=== PATIENT | female | born 1985 ===

== ENCOUNTER 2023-12-27 14:04 | Outpatient (AMB) | payer BC, SELFPAY ==
[2023-12-27 14:07] VITALS: BP 112/68; PULSE 86; O2SAT 97; BMI 24.9
--- NOTE | 2023-12-27 14:07 | MHC.PC.OV ---
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 Intake Note: Pt is here to est care Pt needs a referral to MEDICAL ADMINISTRATIVE SPECIALIST it has been over 5 years Is last menstrual period known: No (maybe 2 months ago ) Allergies No Known Allergies Allergy (Verified 12/27/23 14:18) Medication List - Last Reconciled 12/27/23 by JOLANTA Ortega No Known Home Meds Tobacco use date assessed: 12/27/23 Dental Screening Dental Screen Date: 12/27/23 Did you have a dental visit in the last 12 months?: No Did you have a dental problem in the last 6 months where you did not have access to dental care?: No Was dental information given to patient?: No HPI HPI Comments History of Present Illness Details Patient is a 38-year-old female who I am meeting for the 1st time. She is here for physical exam. She has not seen a primary care provider in over 5 years. She is due for pap smear will refer to OBGYN. Patient will send records from previous provider she is unsure about immunizations, unable to verify. Patient has a primary concern lower back pain times 6 months. 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 Denies any trauma to the area. States that she does have burning. She is unable to sit for long periods of time. Has not tried any medication for relief. PFSH Family History (Updated 12/27/23 @ 14:54 by JOLANTA Ortega) Maternal Grandfather Mental health disorder Mother Mental health disorder Maternal Grandmother Breast cancer Social History (Updated 12/27/23 @ 14:54 by JOLANTA Ortega) Housing: House Patient Tobacco Use Status: Never used Tobacco e-Cigarette/Vaping Use: Never Used Second Hand Smoke Exposure: No service: No Current occupational status: employed Current occupation: [employer] Current occupational exposures/hazards: No Cognitive needs: No Hearing needs: No Vision needs: Yes Questionnaire PHQ-9 Over the last 2 weeks, how often have you been bothered by any of the following problems? 55615 - PHQ-9 Billing: Patient declined-do not bill Source: Developed by Drs. George Wallis, Zuleyka Echavarria, Washington Charles and colleagues, with an educational kristi from [employer]. Thrive Questionnaire Date Thrive assessed: 12/27/23 I am a: Patient What is your living situation today?: I have a steady place to live Within the past 12 months, did the food you bought not last and you didn't have the money to get more?: Never true Within the past 12 months, did you worry whether your food would run out before you got money to buy more?: Never true Do you have trouble paying for medicines?: No Do you have trouble getting transportation to medical appointments?: No Do you have trouble paying your heating and electricity bill?: No Do you have trouble taking care of your child, family member or friend?: No Do you have trouble with day-to-day activities such as bathing, preparing meals, shopping, managing finances, etc.?: No Are you currently unemployed and looking for a job?: No Are you interested in more education?: Yes THRIVE Score: 0 AUDIT C Alcohol Use Questionnaire (AUDIT-C) 1. How often do you have a drink containing alcohol?: Monthly or less 2. How many drinks containing alcohol do you have on a typical day when you are drinking?: 1 or 2 3. How often do you have six or more drinks on one occasion?: Never Total Score: 1 JACOB-7 AMB Questionnaire JACOB-7 Date JACOB - 7 assessed: 12/27/23 Feeling nervous, anxious, or on edge: 2 = More than half the days Not being able to stop or control worryin = More than half the days Worrying too much about different things: 1 = Several days Trouble relaxin = More than half the days Being so restless that it is hard to sit still: 2 = More than half the days Becoming easily annoyed or irritable: 1 = Several days Feeling afraid as if something awful might happen: 2 = More than half the days Total JACOB-7 score (0-4 normal; 5-9 mild; 10-14 moderate; 15-21 severe): 12 Source: Developed by Zuleyka Wilson Kurt Kroenke and colleagues, with an educational kristi from [employer]. JACOB-7 Assessment Billing JACOB-7 Assessment Tool: JACOB-7 Assessment 67622 (Patient does not want therapy or medication at this time.) Review of Systems Const All systems reviewed & are unremarkable except as noted in HPI and below Musc Reports back pain (lower back pain) and Reports radiating pain into limb (Bilateral lower extremities.) Psych Reports anxiety (Denies SI/HI. ) Physical exam (Primary Care) Care Plan Goal for BP management: Vital signs reviewed stable. Const Other: Appearance: Alert.? Oriented X3.? No acute distress.? Head: Normocephalic, atraumatic, Eyes: Pupils equal, round and reactive to light.?No photophobia. ENT: Pharynx normal.?Septum midline, TM intact and pearly rasheed. Neck: Normal inspection.? Neck supple.?Full ROM. CVS: Normal heart rate and rhythm.? Pulses normal.? Respiratory: No respiratory distress.? Breath sounds normal.? Abdomen: Soft and nontender.? Skin: Skin warm and dry.? Normal skin color.? Normal skin turgor.? Extremities: No lower extremity edema.?5/5 strength to bilateral upper and lower extremities Back: No midline tenderness, no C-spine tenderness, Limited range of motion to flexion/extension. + straight leg test bilaterally. no CVA tenderness bilaterally Neuro: Oriented X 3.? No motor deficit.? No sensory deficit. CN 2-12 intact Assessment and Plan Assessment & Plan (1) Encounter for routine adult physical exam with abnormal findings: Comment: Will order fasting labs. Will refer patient OBGYN. Code(s): Z00.01 - Encounter for general adult medical examination with abnormal findings (2) Low back pain radiating to lower extremity: Comment: Will give patient meloxicam, cyclobenzaprine, prednisone, to be taken as directed. Will order lumbar x-ray. Will refer to PT if indicated Code(s): M54.50 - Low back pain, unspecified; M79.606 - Pain in leg, unspecified Plan: Take your medications as prescribed. If you were prescribed antibiotics today, it is important that you take your medication to their entirety, do not skip any doses, do not finish them early. Follow-up with your primary care provider this week. Return to the emergency department with new or worsening symptoms. Such as fevers, chills, chest pain, shortness of breath, nausea, vomiting, dizziness, headache, vision changes, lethargy In case of emergency call 911 Plan Follow-up in 3 months. Orders: Orders Comprehensive Met. Panel Today Z91.89 - Other specified personal risk factors, not elsewhere classified Vitamin D 25-OH (D2 and D3) Today Z13.21 - Encounter for screening for nutritional disorder Vitamin B12 Today Z13.21 - Encounter for screening for nutritional disorder UA CC w/rflx Micro + Cult Today Z13.89 - Encounter for screening for other disorder TSH reflex Free T4 Today Z13.29 - Encounter for screening for other suspected endocrine disorder Lipid Panel Today Z13.220 - Encounter for screening for lipoid disorders T Spot TB Today Z11.1 - Encounter for screening for respiratory tuberculosis Complete Blood Count Auto Diff Today Z13.0 - Encounter for screening for diseases of the blood and blood-forming organs and certain disorders involving the immune mechanism Vitamin B6 Today Z13.21 - Encounter for screening for nutritional disorder XR lumbar spine 2-3V Today M54.50 - Low back pain, unspecified, M79.606 - Pain in leg, unspecified Referrals MEDICAL ADMINISTRATIVE SPECIALIST Referral Z12.4 - Encounter for screening for malignant neoplasm of cervix Medications: New meloxicam Do not combine with other NSAIDS 15 mg PO DAILY 20 tabs 0RF cyclobenzaprine Take before bedtime as needed. 5 mg PO BEDTIME PRN 14 tabs 0RF muscle spasm prednisone 20 mg PO BID 10 tabs 0RF Coding Level of Care Code New Pt Prev Care 18-39yr([id number] Diagnoses Encounter for routine adult physical exam with abnormal findings Z00.01 Low back pain radiating to lower extremity M54.50; M79.606 Additional Codes JACOB-7 Assessment Billing - JACOB-7 Assessment Tool: JACOB-7 Assessment 68389 ([id number]) Time Spent (min) 35
== END 2023-12-27 16:08 | disposition home or self-care (01) ==
PROVIDERS: Visit Provider Nurse Practitioner Primary Care
DX: Z00.01 Encounter for general adult medical examination with abnormal findings (principal); M54.50 Low back pain, unspecified; M79.606 Pain in leg, unspecified
CPT/HCPCS: 99213; 99385

== ENCOUNTER 2024-01-01 06:03 | Outpatient (REF) | payer BC, SELFPAY ==
--- NOTE | ~2024-01-01 | XR_ITS ---
EXAMINATION: XR LUMBOSACRAL SPINE CLINICAL INFORMATION: Low back pain unspecified. COMPARISON: None available. TECHNIQUE: Three views of the lumbosacral spine. FINDINGS: Slight leftward curvature of the lumbar spine. Mild degenerative changes in the bilateral sacroiliac joints. Facet arthritis in the lower lumbar spine. Mild spondylosis with loss of disc space height at L5-S1. XR/XR lumbar spine 2-3V IMPRESSION: 1. Mild degenerative changes in the bilateral sacroiliac joints. 2. Facet arthritis in the lower lumbar spine. 3. Mild spondylosis with loss of disc space height at L5-S1.
[2024-01-01 11:28] LABS: Appearance Urine Turbid; Color Urine Dark Yellow; Glucose Urine UA Negative (Negative); Leukocyte Esterase Urine Small (1+) (Negative); Nitrite Urine Negative (Negative); PH 5.5 (5.0-9.0); Specific Gravity - Urine >= 1.030 (1.005-1.025); UMIC TRIGGER UACC YES; Urine Blood Large (3+) (Negative); Urine Ketones Trace mg/dL (Negative); Urine Protein 30 (1+) mg/dL (Neg-Trace)
[2024-01-01 11:34] LABS: Bacteria Urine 1+ (None Seen); Hyaline Casts Urine 0-2 /LPF (0-2); RBC Urine >20 /HPF (0-2); UACC Culture Trigger YES; WBC Urine 21-50 /HPF (0-5)
[2024-01-01 11:35] LABS: MANUAL DIFF FLAG NO
[2024-01-01 11:48] LABS: Basophils Absolute Auto 0.1 X10*3/uL (0.0-0.2); Eosinophils Percent Auto 0.6 % (0-4); Hematocrit 38.7 % (37.0-47.0); Hemoglobin 12.7 g/dl (12.0-16.0); Imm Gran Abs Auto 0.01 X10*3/uL (0.00-0.03); Imm Gran Pct Auto 0.2 % (0.0-0.4); Lymphocytes Absolute Auto 2.4 X10*3/uL (1.2-4.9); Lymphocytes Percent Auto 48.5 % (20-40); Mean Corpuscular HGB Conc 32.8 g/dl (31.0-35.0); Mean Corpuscular Hemoglobin 30.1 pg (27.0-33.0); Mean Corpuscular Volume 91.7 fL (80.0-98.0); Mean Platelet Volume 11.3 fL (9.4-12.3); Monocytes Absolute Auto 0.3 X10*3/uL (0.1-1.2); Monocytes Percent Auto 6.8 % (2-11); Neutrophils Absolute Auto 2.1 x10*3/uL (2.0-8.3); Neutrophils Percent Auto 42.9 % (45-73); Platelet Count 283 X10*3/uL (160-400); Red Blood Count 4.22 X10*6/uL (4.20-5.50)
[2024-01-01 12:26] LABS: Vitamin B12 258 pg/mL (200-900)
[2024-01-01 12:31] LABS: Alanine Aminotransferase 11 U/L (0-31); Alkaline Phosphatase 47 U/L (39-117); Anion Gap 11 (12-20); Aspartate Amino Transferase 14 U/L (5-31); Bilirubin Total 1.6 mg/dL (0.0-1.0); Blood Urea Nitrogen 12 mg/dL (9-16); Calcium 8.9 mg/dL (8.4-10.2); Carbon Dioxide 25 mmol/L (22-29); Chloride 107 mmol/L (96-108); Cholesterol 174 mg/dL (<200); Estimated Glomerular Filt Rate > 60; Glucose Random 79 mg/dL (60-115); HDL Cholesterol 58 mg/dL (>40); LDL Cholesterol Calculated 98 mg/dL (<100); Potassium 3.4 mmol/L (3.3-5.1); Sodium 140 mmol/L (135-145); Total Protein 6.9 g/dL (6.5-8.0); Triglycerides 91 mg/dL (<150)
[2024-01-01 12:39] LABS: TSH reflex Free T4 5.85 uIU/mL (0.32-4.0)
[2024-01-01 13:11] LABS: Free T4 (Free Thyroxine) 0.95 ng/dL (0.71-1.85)
[2024-01-03 22:33] LABS: TS Negative Control Passed; TS Panel A 0; TS Panel B 0; TS Positive Control Passed; TSpotTB Negative (Negative)
[2024-01-05 16:28] LABS: Vitamin B6 6.5 ng/mL (2.1-21.7)
[2024-01-07 13:27] LABS: Vitamin D 25-OH, D2 <4 ng/mL; Vitamin D 25-OH, D3 18 ng/mL; Vitamin D 25-OH, Total 18 ng/mL (30-100)
== END 2024-01-01 06:04 | disposition home or self-care (01) ==
LOC: HO.HMGCLDS 06:03
PROVIDERS: PCP Nurse Practitioner Primary Care; Visit Provider Nurse Practitioner Primary Care
DX: Z13.6 Encounter for screening for cardiovascular disorders (principal); Z13.21 Encounter for screening for nutritional disorder; Z13.29 Encounter for screening for other suspected endocrine disorder; Z13.220 Encounter for screening for lipoid disorders; Z13.0 Encounter for screening for diseases of the blood and blood-forming organs and certain disorders involving the immune mechanism; Z11.1 Encounter for screening for respiratory tuberculosis; M54.50 Low back pain, unspecified; Z91.89 Other specified personal risk factors, not elsewhere classified; M79.606 Pain in leg, unspecified; R82.90 Unspecified abnormal findings in urine
CPT/HCPCS: 36415; 72100; 80053; 80061; 81001; 82306; 82607; 84207; 84439; 84443; 85025; 86481; 87086

== ENCOUNTER 2024-01-01 14:48 | Outpatient (REF) | payer BC, SELFPAY | END 2024-01-01 14:49 | disposition home or self-care (01) | LOC: HO.HMGCX 14:48 | PROVIDERS: PCP Nurse Practitioner Primary Care; Visit Provider Nurse Practitioner Primary Care | DX: Z13.89 Encounter for screening for other disorder (principal) ==

== ENCOUNTER 2024-03-20 14:32 | Outpatient (AMB) | payer BC, SELFPAY ==
[2024-03-20 14:33] VITALS: BP 114/78; PULSE 81; O2SAT 98; BMI 24.6
--- NOTE | 2024-03-20 14:33 | MHC.PC.OV ---
Vital Signs 03/20/24 14:33 Height 5 ft 5 in Weight 148 lb BMI 24.6 BP 114/78 Blood Pressure Location Rt brachial Position Sitting Pulse 81 Pulse Source Pulse Oximeter Pulse Oximetry (%) 98 Oxygen Delivery Method Room Air Intake Visit Reasons: 3M F/U Back pain Intake Note: pt here today for 3 mo f/u back pain. Still having pain constantly Allergies No Known Allergies Allergy (Verified 03/20/24 14:51) Medication List - Last Reconciled 03/20/24 by JOLANTA Ortega cyclobenzaprine 5 mg PO BEDTIME PRN meloxicam 15 mg PO DAILY Tobacco use date assessed: 03/20/24 Dental Screening Dental Screen Date: 03/20/24 Did you have a dental visit in the last 12 months?: No Did you have a dental problem in the last 6 months where you did not have access to dental care?: No Was dental information given to patient?: No HPI HPI Comments History of Present Illness Details Patient is a 38-year-old female in today for follow-up with lower back pain. Patient has lumbar x-ray on file which demonstrated loss of disc space at L5-S1, as well as facet arthritis and degenerative changes of bilateral SI joints. Patient has been utilizing meloxicam and cyclobenzaprine p.r.n. with good effect. Patient has also been going through course of physical therapy and has 1 more week left with mild to moderate effect. Patient denies numbness or tingling. Patient denies and radiculopathy. Patient has full range of motion but does experience intermittent pain. Denies saddle numbness. 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 Patient is pursuing more sedentary position for work. Will order referral to pain clinic. Will also order MRI of spine. Patient has establish care with OBGYN at [facility]. Has agreed to send us the notes. [facility] Surgical History No pertinent past surgical history Family History Maternal Grandfather Mental health disorder Mother Mental health disorder Maternal Grandmother Breast cancer Social History Housing: House Patient Tobacco Use Status: Never used Tobacco e-Cigarette/Vaping Use: Never Used Second Hand Smoke Exposure: No service: No Current occupational status: employed Current occupation: [employer] Current occupational exposures/hazards: No Cognitive needs: No Hearing needs: No Vision needs: Yes Questionnaire PHQ-9 Over the last 2 weeks, how often have you been bothered by any of the following problems? 09397 - PHQ-9 Billing: Patient declined-do not bill Source: Developed by Drs. George Wallis, Washington Alcantara and colleagues, with an educational kristi from [employer]. Thrive Questionnaire Date Thrive assessed: 12/27/23 AUDIT C Alcohol Use Questionnaire (AUDIT-C) 1. How often do you have a drink containing alcohol?: Monthly or less 2. How many drinks containing alcohol do you have on a typical day when you are drinking?: 1 or 2 3. How often do you have six or more drinks on one occasion?: Never Total Score: 1 JACOB-7 AMB Questionnaire JACOB-7 Date JACOB - 7 assessed: 12/27/23 Source: Developed by Drs. George Wallis, Washington Alcantara and colleagues, with an educational kristi from [employer]. Review of Systems Const All systems reviewed & are unremarkable except as noted in HPI and below Physical exam (Primary Care) Vital Signs: Last Vital Signs Pulse 81 03/20/24 14:33 BP 114/78 03/20/24 14:33 Pulse Ox 98 03/20/24 14:33 Oxygen Delivery Method Room Air 03/20/24 14:33 Care Plan Goal for BP management: Patient's blood pressure is controlled. BMI result Body Mass Index 24.6 Tobacco/Smoking Status: Tobacco use Status Tobacco use date assessed 03/20/24 03/20/24 14:41 Patient Tobacco Use Status Never used Tobacco 03/20/24 14:41 e-Cigarette/Vaping Use Never Used 03/20/24 14:41 Thrive Assessment: Date of Thrive Assessment Date Thrive assessed 12/27/23 03/20/24 14:41 Const Other: Appearance: Alert.? Oriented X3.? No acute distress.? Head: Normocephalic. CVS: Normal heart rate and rhythm.? Pulses normal.? Respiratory: No respiratory distress.? Skin: Skin warm and dry.? Normal skin color.? Normal skin turgor.? Back: No midline tenderness, no C-spine tenderness, full range of motion, no CVA tenderness bilaterally. Bilateral SI tenderness. +pain with straight leg test bilaterally. Neuro: Oriented X 3.? No motor deficit.? No sensory deficit. Results Reviewed Results Reviewed: Sodium 140 135-145 mmol/L Potassium 3.4 3.3-5.1 mmol/L CL 107 96-108 mmol/L CO2 25 22-29 mmol/L Gap 11 L 12-20 BUN 12 9-16 mg/dL Creat 0.70 0.5-1.4 mg/dL EGFR > 60 NOTE: For -[place]ian individuals, multiply the result by 1.210. Chronic Kidney Disease: Estimated GFR < 60 mL/min/1.73m2 Severe Kidney Disease: Estimated GFR < 15 mL/min/1.73m2 Glucose, Random 79 60-115 mg/dL CA 8.9 8.4-10.2 mg/dL Total Bili 1.6 H 0.0-1.0 mg/dL AST (GOT) 14 5-31 U/L ALT (GPT) 11 0-31 U/L Protein, Total 6.9 6.5-8.0 g/dL Alb 4.0 3.5-5.0 g/dL Triglyceride 91 <150 mg/dL Desirable Triglyceride: less than 150 mg/dL Borderline High Triglyceride 150-199 mg/dL High Triglyceride: 200-499 mg/dL Very High Triglyceride: greater than or equal to 5OO mg/dL Cholesterol 174 <200 mg/dL Desirable Cholesterol: less than 200 mg/dL Borderline High Cholesterol: 200-239 mg/dL High Cholesterol: greater than 239 mg/dL LDL Calculated 98 <100 mg/dL Desirable LDL: less than 100 mg/dL Near Optimal/Above Optimal LDL: 110-129 mg/dL Borderline High LDL: 130-159 mg/dL High LDL: 160-189 mg/dL Very High LDL: greater than or equal to 190 mg/dL HDL 58 >40 mg/dL Desirable HDL: greater than 40 mg/dL Note: This HDL assay may give artificially low results in patients with liver disease. Alk Phos 47 39-117 U/L Free T4 0.95 0.71-1.85 ng/dL TSH 5.85 H 0.32-4.0 uIU/mL Assessment and Plan Assessment & Plan (1) Vitamin D deficiency: Comment: Will redraw vitamin-D. Patient states she is taking multivitamin with vitamin-D. Unknown amount. Patient has been instructed to look to see specific amount of vitamin D3 in the multivitamin. Code(s): E55.9 - Vitamin D deficiency, unspecified (2) Low back pain radiating to lower extremity: Comment: Patient currently undergoing physical therapy with [id number] effect. Does still have intermittent SI and lumbar pain. Does have radiculopathy on straight leg exam. Patient utilizes meloxicam and cyclobenzaprine with [id number] effect Code(s): M54.50 - Low back pain, unspecified; M79.606 - Pain in leg, unspecified Plan: Will order MRI and give referral to Pain managment. Plan Will draw labs. Including vitamin-D, CBC, CMP, UA Orders: Orders UA CC w/rflx Micro + Cult Today Z13.89 - Encounter for screening for other disorder Complete Blood Count Auto Diff Today Z13.0 - Encounter for screening for diseases of the blood and blood-forming organs and certain disorders involving the immune mechanism Comprehensive Met. Panel Today Z91.89 - Other specified personal risk factors, not elsewhere classified XR sacroiliac joint 1-2V Today R10.9 - Unspecified abdominal pain Vitamin D 25-OH (D2 and D3) Today E55.9 - Vitamin D deficiency, unspecified MR lumbar spine wo con Today M54.50 - Low back pain, unspecified, M79.606 - Pain in leg, unspecified Referrals Pain Management Referral M54.50 - Low back pain, unspecified, M79.606 - Pain in leg, unspecified Coding Level of Care Code Est Pt Level 3 (35758) Diagnoses Vitamin D deficiency E55.9 Low back pain radiating to lower extremity M54.50; M79.606 Time Spent (min) 26
== END 2024-03-20 14:59 | disposition home or self-care (01) ==
PROVIDERS: PCP Nurse Practitioner Primary Care; Visit Provider Nurse Practitioner Primary Care
DX: E55.9 Vitamin D deficiency, unspecified (principal); M54.50 Low back pain, unspecified; M79.606 Pain in leg, unspecified
CPT/HCPCS: 99213

== ENCOUNTER 2024-03-20 15:02 | Outpatient (REF) | payer BC, SELFPAY ==
--- NOTE | ~2024-03-20 | XR_ITS ---
EXAMINATION: XR SACROILIAC JOINTS CLINICAL INFORMATION: Low back pain. COMPARISON: Lumbar spine 01/01/2024. TECHNIQUE: 3 views of the sacroiliac joints FINDINGS: Degenerative changes in the imaged lower lumbar spine. Mild degenerative changes with sclerosis along the bilateral sacroiliac joints. XR/XR sacroiliac joint 1-2V IMPRESSION: Mild degenerative changes with sclerosis along the bilateral sacroiliac joints.
[2024-03-20 15:59] LABS: MANUAL DIFF FLAG NO
[2024-03-20 16:01] LABS: Appearance Urine Clear; Color Urine Yellow; Glucose Urine UA Negative (Negative); Leukocyte Esterase Urine Negative (Negative); Nitrite Urine Negative (Negative); PH 5.5 (5.0-9.0); Urine Blood Negative (Negative); Urine Ketones Negative (Negative); Urine Protein Negative (Neg-Trace)
[2024-03-20 16:12] LABS: Basophils Absolute Auto 0.1 X10*3/uL (0.0-0.2); Basophils Percent Auto 0.9 % (0-2); Eosinophils Absolute Auto 0.1 X10*3/uL (0.0-0.4); Eosinophils Percent Auto 2.1 % (0-4); Hematocrit 38.4 % (37.0-47.0); Hemoglobin 12.9 g/dl (12.0-16.0); Imm Gran Abs Auto 0.02 X10*3/uL (0.00-0.03); Imm Gran Pct Auto 0.3 % (0.0-0.4); Lymphocytes Absolute Auto 1.5 X10*3/uL (1.2-4.9); Lymphocytes Percent Auto 26.2 % (20-40); Mean Corpuscular HGB Conc 33.6 g/dl (31.0-35.0); Mean Corpuscular Hemoglobin 30.4 pg (27.0-33.0); Mean Corpuscular Volume 90.6 fL (80.0-98.0); Mean Platelet Volume 11.3 fL (9.4-12.3); Monocytes Absolute Auto 0.3 X10*3/uL (0.1-1.2); Monocytes Percent Auto 4.8 % (2-11); Neutrophils Absolute Auto 3.8 x10*3/uL (2.0-8.3); Neutrophils Percent Auto 65.7 % (45-73); Platelet Count 256 X10*3/uL (160-400); Red Blood Count 4.24 X10*6/uL (4.20-5.50); Red Cell Distribution Width 12.6 % (11.0-16.0); White Blood Count 5.8 X10*3/uL (4.8-10.8)
[2024-03-20 16:37] LABS: Alanine Aminotransferase 9 U/L (0-31); Albumin Level 4.2 g/dL (3.5-5.0); Alkaline Phosphatase 42 U/L (39-117); Anion Gap 10 (12-20); Aspartate Amino Transferase 17 U/L (5-31); Bilirubin Total 1.1 mg/dL (0.0-1.0); Blood Urea Nitrogen 9 mg/dL (9-16); Calcium 9.5 mg/dL (8.4-10.2); Carbon Dioxide 27 mmol/L (22-29); Chloride 107 mmol/L (96-108); Estimated Glomerular Filt Rate > 60; Glucose Random 146 mg/dL (60-115); Potassium 3.6 mmol/L (3.3-5.1); Sodium 140 mmol/L (135-145); Total Protein 7.3 g/dL (6.5-8.0)
[2024-03-25 13:42] LABS: Vitamin D 25-OH, D2 <4 ng/mL; Vitamin D 25-OH, D3 19 ng/mL; Vitamin D 25-OH, Total 19 ng/mL (30-100)
== END 2024-03-20 15:03 | disposition home or self-care (01) ==
LOC: HO.HMGCX 15:02
PROVIDERS: PCP Nurse Practitioner Primary Care; Visit Provider Nurse Practitioner Primary Care
DX: Z13.89 Encounter for screening for other disorder (principal); Z91.89 Other specified personal risk factors, not elsewhere classified; E55.9 Vitamin D deficiency, unspecified; Z13.0 Encounter for screening for diseases of the blood and blood-forming organs and certain disorders involving the immune mechanism; R10.9 Unspecified abdominal pain
CPT/HCPCS: 36415; 72200; 80053; 81003; 82306; 85025

== ENCOUNTER 2024-03-27 13:06 | Outpatient (AMB) | payer BC, SELFPAY ==
--- NOTE | 2024-03-27 13:12 | MHC.OFFVIS ---
Vital Signs 03/27/24 13:17 Height 5 ft 5 in Weight 148 lb 6 oz BMI 24.7 BP 126/70 Blood Pressure Location Rt brachial Position Sitting Pulse 74 Pulse Source Pulse Oximeter Pulse Oximetry (%) 99 Oxygen Delivery Method Room Air Intake Visit Reasons: Low back pain, unspecified Intake Note: Pain today 07/23 Head Of Cytogenetics Required: No Accompanied by: Self / Same As Patient Allergies No Known Allergies Allergy (Verified 03/20/24 14:51) HPI HPI Low back pain, unspecified: Details: Patient is a pleasant 38 years old female with history of lumbar degenerative disc disease at L5-S1, lumbar spondylosis and sacroiliac joint degeneration presents today for initial evaluation of low back pain. Denies any recent trauma, injury or falls. 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 Back pain is axial and also radiates into both buttocks, sacral areas and lateral hips but not below the knee level. She reports intermittent numbness and tingling into her left lateral lower extremity. 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 Pain is rated at 8-10/10. Patient has tried meloxicam and cyclobenzaprine with partial relief. She is currently undergoing physical therapy at [facility] [place] [place] [facility] with mild improvement. Pain affects her daily activities, functioning, housechores and work, sleep and social interactions. Denies any fever, chills, abdominal or groin pain, weakness, foot drop, bladder or bowel dysfunction or saddle anesthesia. Oswestry Low Back Pain Score=18 (moderate disability) Location: Lower back radiates down to bilateral leg, left leg is worse Duration: Chronic pain for over 3 years Characteristics of symptom or complaint: Stabbing, shooting, numbness, aching, spasming, throbbing, tingling Aggravating or associated factors: Sitting, walking, cold weather, bending, heavy lifting, pulling, twisting Relieving factors: Standing, rest, cyclobenzaprine, NSAIDs Treatment: Back injections- Estefania Guevara , PT PFSH Surgical History No pertinent past surgical history Family History Maternal Grandfather Mental health disorder Mother Mental health disorder Maternal Grandmother Breast cancer Social History Housing: House Patient Tobacco Use Status: Never used Tobacco e-Cigarette/Vaping Use: Never Used Second Hand Smoke Exposure: No service: No Current occupational status: employed Current occupation: [employer] Current occupational exposures/hazards: No Cognitive needs: No Hearing needs: No Vision needs: Yes Review of Systems Const All systems reviewed & are unremarkable except as noted in HPI and below Physical Exam Vital Signs: Last Vital Signs Pulse 74 03/27/24 13:17 BP 126/70 03/27/24 13:17 Pulse Ox 99 03/27/24 13:17 Oxygen Delivery Method Room Air 03/27/24 13:17 BMI result Body Mass Index 24.7 General: Appears afebrile. Alert and oriented. Mood and affect appropriate. Follows and participates in conversation appropriately. Respiratory effort is unlabored. No cough. Able to transition from sit to stand unassisted. Ambulates with bilaterally normal heel strike and toe off. General: Yes no CVA tenderness Back/Spine/Pelvis Other: Patient is able to walk and stand on heels and tip toes with no difficulties demonstrating good motor tone. No limping. Can flex forward to 75-80 degrees and extend to 5-10 degrees before experiencing lumbar pain. Demonstrates 5/5 strength of quadriceps bilaterally as well as flexion/dorsiflexion of bilateral feet against resistance. 2+ pedal pulses bilaterally. Seated straight leg rise with dorsiflexion negative bilaterally. +2 patellar and achilles reflexes bilaterally. Facet loading test positive bilaterally. John sign, Adam?s, Gaenslen, Pelvic compression and Stinchfield tests are positive bilaterally, left worse than right. No groin pain with I/E hip rotations. Valsalva maneuver negative. Back: no CVA tenderness Cervical Spine: cervical ROM normal, cervical muscular tenderness, pain with cervical ROM and No Cervical spine tenderness Thoracic/Lumbar Spine: thoracic and lumbar spine normal to inspection, No Thoracic/lumbar spine scar(s), Lasegue's sign negative, straight leg raise negative bilaterally, pain with thoraco-lumbar ROM, paraspinal muscle tenderness on the left greater than right, No thoracic spinal tenderness and lumbar spinal tenderness (L4-S1) Pelvis: buttock tenderness bilaterally Sacroiliac joints: bilaterally (left>right) tender to palpation Extrem General: Yes capillary refill normal, Yes no clubbing, cyanosis or edema and Yes no calf tenderness Results Reviewed Results Reviewed: XR LUMBOSACRAL SPINE 01/01/24 CLINICAL INFORMATION: Low back pain unspecified. FINDINGS: Slight leftward curvature of the lumbar spine. Mild degenerative changes in the bilateral sacroiliac joints. Facet arthritis in the lower lumbar spine. Mild spondylosis with loss of disc space height at L5-S1. IMPRESSION: 1. Mild degenerative changes in the bilateral sacroiliac joints. 2. Facet arthritis in the lower lumbar spine. 3. Mild spondylosis with loss of disc space height at L5-S1. Assessment & Plan Assessment & Plan (1) Muscle spasm of back: Code(s): M62.830 - Muscle spasm of back Category: Medical (2) Sacroiliac joint pain: Code(s): M53.3 - Sacrococcygeal disorders, not elsewhere classified Category: Medical (3) Lumbosacral spondylosis: Code(s): M47.817 - Spondylosis without myelopathy or radiculopathy, lumbosacral region Category: Medical (4) Lumbar degenerative disc disease: Code(s): M51.36 - Other intervertebral disc degeneration, lumbar region Category: Medical Plan Patient's pain consistent with axial low back and bilateral SI joint pain, worse on the left. Lumbar spine xray and treatment options discussed with patient. There is a pending lumbar spine MRI ordered by PCP. In meantime, patient is interested to undergo Left therapeutic Sacroiliac Joint Injection with local and fluoroscopy. If no relief, will proceed with diagnostic bilateral lumbar medial branch blocks for axial low back pain. Expectations, risks and benefits were reviewed. Patient is aware she will be contacted to schedule this procedure. Scripts provided for methocarbamol and lidocaine patches. Patient reports increased dizziness and drowsiness with cyclobenzaprine. Side effects and precautions discussed with patient. All questions were answered and the patient is in agreement of plan. Follow-up after injections/MRI review and sooner as needed. Medications: New methocarbamol 750 mg PO BID 30 days PRN 60 tabs 0RF muscle spasm M53.3 - Sacrococcygeal disorders, not elsewhere classified, M54.50 - Low back pain, unspecified, M62.830 - Muscle spasm of back, M79.606 - Pain in leg, unspecified lidocaine 5% 1 patch topical DAILY 30 days 30 ea 0RF Discontinued cyclobenzaprine Take before bedtime as needed. Discontinued Reason: Patient Completed Course 5 mg PO BEDTIME PRN 14 tabs 0RF muscle spasm Coding Level of Care Code New Pt Level 4 (71546) Diagnoses Muscle spasm of back M62.830 Sacroiliac joint pain M53.3 Lumbosacral spondylosis M47.817 Lumbar degenerative disc disease M51.36
[2024-03-27 13:17] VITALS: BP 126/70; PULSE 74; O2SAT 99; BMI 24.7
== END 2024-03-27 14:11 | disposition home or self-care (01) ==
PROVIDERS: PCP Nurse Practitioner Primary Care; Visit Provider Nurse Practitioner Family
DX: M62.830 Muscle spasm of back (principal); M53.3 Sacrococcygeal disorders, not elsewhere classified; M47.817 Spondylosis without myelopathy or radiculopathy, lumbosacral region; M51.36 Other intervertebral disc degeneration, lumbar region
CPT/HCPCS: 99204

== ENCOUNTER → 2024-03-27 13:06 | Outpatient (BNVA) | payer BC, SELFPAY | PROVIDERS: PCP Nurse Practitioner Primary Care; Visit Provider Nurse Practitioner Family ==

== ENCOUNTER 2024-04-24 08:00 | Outpatient (RCR) | payer BC, SELFPAY ==
--- NOTE | 2024-02-21 14:44 | MHC.PT.EP ---
[facility] [place] Office [place] Office [place] Office [address] [phone] F: [phone] F: [phone] F: [phone] F: [phone] Physical Therapy Plan of Care Date of Evaluation: 02/21/24 Date of Surgery: Diagnosis: LBP and pain in leg. Assessment: Patient is a 38 year old R handed female who presents with s/s consistent with low back pain and pain in leg. She works with daily job demands including heavy lifting for [employer]. Patient past medical history is unremarkable otherwise. Current impairments include pain, posture, ROM, strength, body mechanics, activity tolerance and functional mobility. Functional limitations include decreased ability to walk, stand, lift, carry, squat, work, exercise and maintain prolonged positions. Patient is motivated with good rehab potential. Skilled PT will address impairments and functional limitations in order to achieve goals. 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 Manual therapy to restore motion and function. Therapeutic exercise to improve strength and flexibility. Neuromuscular re-education for posture and balance. Therapeutic activities to return to functional activities of daily living. Electronically signed by: Charly Crabtree, PT Please sign and return to therapist. Thank you for your referral.
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
== END 2024-07-22 14:40 | disposition home or self-care (01) ==
LOC: HO.PTCHIC 08:00
PROVIDERS: PCP Nurse Practitioner Primary Care; Visit Provider Nurse Practitioner Primary Care
DX: M54.50 Low back pain, unspecified (principal); M79.606 Pain in leg, unspecified
CPT/HCPCS: 97014; 97110; 97112; 97161

== ENCOUNTER 2024-05-29 08:40 | Outpatient (REF) | payer BC, SELFPAY ==
--- NOTE | ~2024-05-29 | MR_ITS ---
EXAMINATION: MR LUMBAR SPINE WITHOUT CONTRAST CLINICAL INFORMATION: Low back pain COMPARISON: Lumbar radiographs 01/01/2024 TECHNIQUE: MRI of the lumbar spine was obtained using routine sequences without the administration of intravenous contrast. FINDINGS: This examination assumes the presence of 5 lumbar type vertebral bodies. For the purposes of this examination, the L5-S1 intervertebral disc space is visualized on axial series 16 image 27. The normal lumbar lordosis is preserved. Trace retrolisthesis of L5-S1. Lumbar vertebral body heights are maintained. No expansile or destructive osseous lesion. The conus medullaris and cauda equina nerve roots are unremarkable; the conus terminates at the level of L1. L1-L2: No significant spinal canal or neural foraminal stenosis. L2-L3: No significant spinal canal or neural foraminal stenosis. L3-L4: No significant spinal canal or neural foraminal stenosis. L4-L5: No significant spinal canal or neural foraminal stenosis. L5-S1: Small central disc protrusion with annular fissure. The spinal canal is not significantly narrowed. The neural foramen are patent. Mild right facet degeneration. MR/MR lumbar spine wo con IMPRESSION: Small central disc protrusion with annular fissure at L5-S1. No significant spinal canal or neural foraminal stenosis in the lumbar spine. Electronically signed by: Wesley Hinojosa MD 06/19/2024 06:09 PM EDT
== END 2024-05-29 08:41 | disposition home or self-care (01) ==
LOC: HO.MRI 08:40
PROVIDERS: PCP Nurse Practitioner Primary Care; Visit Provider Nurse Practitioner Primary Care
DX: M54.50 Low back pain, unspecified (principal); M79.604 Pain in right leg; M79.605 Pain in left leg
CPT/HCPCS: 72148

== ENCOUNTER 2024-10-15 15:19 | Outpatient (AMB) | payer BC, SELFPAY ==
[2024-10-15 15:30] VITALS: BP 118/78; PULSE 91; O2SAT 98; BMI 26.0
--- NOTE | 2024-10-15 15:30 | MHC.PC.OV ---
Vital Signs 10/15/24 15:30 Height 5 ft 5 in Weight 156 lb BMI 26.0 BP 118/78 Blood Pressure Location Lt brachial Position Sitting Pulse 91 Pulse Source Pulse Oximeter Pulse Oximetry (%) 98 Oxygen Delivery Method Room Air Intake Visit Reasons: MRI results, back pain Intake Note: Pt is here today for her MRI results Allergies No Known Allergies Allergy (Verified 10/15/24 15:48) Medication List - Last Reconciled 10/15/24 by Dianne Moeller MD No Known Home Meds Tobacco use date assessed: 10/15/24 Dental Screening Dental Screen Date: 10/15/24 Did you have a dental visit in the last 12 months?: No Did you have a dental problem in the last 6 months where you did not have access to dental care?: No Was dental information given to patient?: No HPI MRI results, back pain HPI Details 39-year-old lady, new to me, to discuss results of MRI results done 06/02/2024. It showed the following: MR/MR lumbar spine wo con IMPRESSION: Small central disc protrusion with annular fissure at L5-S1. No significant spinal canal or neural foraminal stenosis in the lumbar spine. Patient is still having intermittent pain in her lower back nonradiating, aggravated by lifting or carrying anything heavy. However, this is something that is unavailable in her line of work. She was seen by pain management last 04/02/2024 and given prescription for methocarbamol and lidocaine patches, which she states has been helping.. Denies any urinary incontinence, no generalized weakness, no numbness or tingling going done extremities. [facility] Medical History (Updated 10/18/24 @ 21:55 by Dianne Moeller MD) Protrusion of lumbar intervertebral disc Surgical History No pertinent past surgical history Family History Maternal Grandfather Mental health disorder Mother Mental health disorder Maternal Grandmother Breast cancer Social History Housing: House Patient Tobacco Use Status: Never used Tobacco e-Cigarette/Vaping Use: Never Used Second Hand Smoke Exposure: No service: No Current occupational status: employed Current occupation: [employer] Current occupational exposures/hazards: No Cognitive needs: No Hearing needs: No Vision needs: Yes Questionnaire PHQ-9 Over the last 2 weeks, how often have you been bothered by any of the following problems? 1. Little interest or pleasure in doing things: not at all 2. Feeling down, depressed, or hopeless: not at all 3. Trouble falling or staying asleep, or sleeping too much: several days 4. Feeling tired or having little energy: several days 5. Poor appetite or overeating: not at all 6. Feeling bad about yourself - or that you are a failure or have let yourself or your family down: not at all 7. Trouble concentrating on things, such as reading the newspaper or watching television: several days 8. Moving or speaking so slowly that other people could have noticed. Or the opposite - being so fidgety or restless that you have been moving around a lot more than usual: not at all 9. Thoughts that you would be better off or of hurting yourself in some way: not at all Total score: 3 Depression Screening Interpretation: Negative Depression Screening Done: Yes 39144 - PHQ-9 Billing: Yes Source: Developed by Drs. George Wallis, Zuleyka Echavarria, Washington Charles and colleagues, with an educational kristi from [employer]. Thrive Questionnaire Date Thrive assessed: 10/15/24 I am a: Patient What is your living situation today?: I have a steady place to live Within the past 12 months, did the food you bought not last and you didn't have the money to get more?: I choose not to answer this question Within the past 12 months, did you worry whether your food would run out before you got money to buy more?: I choose not to answer this question Do you have trouble paying for medicines?: I choose not to answer this question Do you have trouble getting transportation to medical appointments?: I choose not to answer this question Do you have trouble paying your heating and electricity bill?: I choose not to answer this question Do you have trouble taking care of your child, family member or friend?: I choose not to answer this question Do you have trouble with day-to-day activities such as bathing, preparing meals, shopping, managing finances, etc.?: No Are you currently unemployed and looking for a job?: No Are you interested in more education?: Yes Please select the resources that you would like help with: None Currently or been in a relationship where the following occur: I choose not to answer THRIVE Score: 0 AUDIT C Alcohol Use Questionnaire (AUDIT-C) 1. How often do you have a drink containing alcohol?: Never Total Score: 0 JACOB-7 AMB Questionnaire JACOB-7 Date JACOB - 7 assessed: 10/15/24 Feeling nervous, anxious, or on edge: 1 = Several days Not being able to stop or control worryin = Several days Worrying too much about different things: 1 = Several days Trouble relaxin = Not at all Being so restless that it is hard to sit still: 0 = Not at all Becoming easily annoyed or irritable: 0 = Not at all Feeling afraid as if something awful might happen: 0 = Not at all Total JACOB-7 score (0-4 normal; 5-9 mild; 10-14 moderate; 15-21 severe): 3 Source: Developed by Drs. George Wallis, Zuleyka Echavarria, Washington Charles and colleagues, with an educational kristi from [employer]. JACOB-7 Assessment Billing JACOB-7 Assessment Tool: JACOB-7 Assessment 39059 Review of Systems Const All systems reviewed & are unremarkable except as noted in HPI and below Physical exam (Primary Care) Vital Signs: Last Vital Signs Pulse 91 10/15/24 15:30 BP 118/78 10/15/24 15:30 Pulse Ox 98 10/15/24 15:30 Oxygen Delivery Method Room Air 10/15/24 15:30 BMI result Body Mass Index 26.0 Tobacco/Smoking Status: Tobacco use Status Tobacco use date assessed 10/15/24 10/15/24 15:34 Patient Tobacco Use Status Never used Tobacco 10/15/24 15:30 e-Cigarette/Vaping Use Never Used 10/15/24 15:30 PHQ-9: PHQ-9 Score PHQ-9: Total score 4 10/18/24 18:38 Depression Screening Interpretation: Negative Thrive Assessment: Date of Thrive Assessment Date Thrive assessed 10/15/24 10/15/24 15:34 Currently or been in a relationship where the following occur: I choose not to answer Const General: no acute distress and alert Orientation/consciousness: patient oriented x3 Eyes General: appearance normal, both eyes and all related structures Neck Neck: Yes full ROM, Yes no lymphadenopathy and Yes supple Resp Effort & Inspection: normal respiratory effort and able to speak in complete sentences Auscultation: clear to auscultation bilaterally Cardio Rate: regular rate Rhythm: regular rhythm Heart sounds: S1 normal heart sound present and S2 normal heart sound present GI Palpation (GI): Soft to palpation, nontender and no masses Auscultation: normal bowel sounds Back/Spine/Pelvis Back: No back tenderness Skin General skin exam: no rashes or lesions noted Neuro General: patient oriented x3, gait normal, tone normal, moves all extremities, Normal light touch and pain sensation and no focal motor deficits Cranial nerves: Yes CN's II-XII intact bilaterally Cognition (Neuro): normal cognition Extrem General: Yes full ROM, Yes no joint enlargement, Yes no clubbing, cyanosis or edema and Yes no calf tenderness Coding Level of Care Code Est Pt Level 3 (42711) Diagnoses Protrusion of lumbar intervertebral disc M51.26 Additional Codes JACOB-7 Assessment Billing - JACOB-7 Assessment Tool: JACOB-7 Assessment 14962 ([id number]) PHQ-9 - 50469 - PHQ-9 Billing: Yes ([id number]) Assessment & Plan Assessment & Plan (1) Protrusion of lumbar intervertebral disc: Code(s): M51.26 - Other intervertebral disc displacement, lumbar region Category: Medical Plan Advised avoidance of repetitive lifting or carrying , try applying [id number] Salonpas patch with lidocaine to affected area in lower back as needed. If pain persists or recurs or worsens, will refer back to pain management clinic
== END 2024-10-15 16:54 | disposition home or self-care (01) ==
PROVIDERS: PCP Internal Medicine; Visit Provider Internal Medicine
DX: M51.26 Other intervertebral disc displacement, lumbar region (principal)

== ENCOUNTER → 2024-10-15 15:19 | Outpatient (BNVA) | payer BC, SELFPAY | PROVIDERS: PCP Internal Medicine; Visit Provider Internal Medicine | DX: M51.26 Other intervertebral disc displacement, lumbar region (principal) | CPT/HCPCS: 96127 ==

== ENCOUNTER 2024-11-03 10:06 | Outpatient (AMB) | payer BC, SELFPAY ==
[2024-11-03 10:16] VITALS: BP 132/62; PULSE 73; BMI 25.6
--- NOTE | 2024-11-03 10:16 | A.OFFVIS_ITS ---
Vital Signs 11/03/24 10:16 Height 5 ft 5 in Weight 154 lb 2 oz BMI 25.6 BP 132/62 Blood Pressure Location Rt brachial Position Sitting Pulse 73 Pulse Source Pulse Oximeter Intake Visit Reasons: Back pain Intake Note: Pain today 05/23 Prevention Coordinator Required: No Accompanied by: Self / Same As Patient Allergies No Known Allergies Allergy (Verified 11/03/24 10:17) HPI Comments Details: Patient presents today for follow up for continued left sided low back pain. She was initially seen in our office last summer with plans for left therapeutic SIJ injection. Patient reports she wanted to complete lumbar spine MRI prior to injection which she completed in May 2024 which showed small central disc protrusion with annular fissure at L5-S1. No significant spinal canal or neural foraminal stenosis in the lumbar spine. Her pain is consistent with left sacroiliac joint pain. She completed formal course of PT and continues with home exercise program with continued symptoms. Denies any recent cough, cold, infection, fever or other significant changes in medical history since last office visit. PRIOR 03/27/24: Patient is a pleasant 38 years old female with history of lumbar degenerative disc disease at L5-S1, lumbar spondylosis and sacroiliac joint degeneration presents today for initial evaluation of low back pain. Denies any recent trauma, injury or falls. 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 Back pain is axial and also radiates into both buttocks, sacral areas and lateral hips but not below the knee level. She reports intermittent numbness and tingling into her left lateral lower extremity. 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 Pain is rated at 8-10/10. Patient has tried meloxicam and cyclobenzaprine with partial relief. She is currently undergoing physical therapy at [facility] with mild improvement. Pain affects her daily activities, functioning, house chores and work, sleep and social interactions. Denies any fever, chills, abdominal or groin pain, weakness, foot drop, bladder or bowel dysfunction or saddle anesthesia. Oswestry Low Back Pain Score=18 (moderate disability) Location: Lower back radiates down to bilateral leg, left leg is worse Duration: Chronic pain for over 3 years Characteristics of symptom or complaint: Stabbing, shooting, numbness, aching, spasming, throbbing, tingling Aggravating or associated factors: Sitting, walking, cold weather, bending, heavy lifting, pulling, twisting Relieving factors: Standing, rest, cyclobenzaprine, NSAIDs Treatment: Back injections- [place] , PT [facility] Medical History Protrusion of lumbar intervertebral disc Surgical History No pertinent past surgical history Family History Maternal Grandfather Mental health disorder Mother Mental health disorder Maternal Grandmother Breast cancer Social History Housing: House Patient Tobacco Use Status: Never used Tobacco e-Cigarette/Vaping Use: Never Used Second Hand Smoke Exposure: No service: No Current occupational status: employed Current occupation: [employer] Current occupational exposures/hazards: No Cognitive needs: No Hearing needs: No Vision needs: Yes Review of Systems Const All systems reviewed & are unremarkable except as noted in HPI and below Physical Exam Vital Signs: Last Vital Signs Pulse 73 11/03/24 10:16 BP 132/62 11/03/24 10:16 BMI result Body Mass Index 25.6 General: Appears afebrile. Alert and oriented. Mood and affect appropriate. Follows and participates in conversation appropriately. Respiratory effort is unlabored. No cough. Able to transition from sit to stand unassisted. Ambulates with bilaterally normal heel strike and toe off. Neck Neck: Yes normal visual inspection, Yes no lymphadenopathy, Yes supple, No anterior neck swelling, Yes no JVD and Yes prominent dorsocervical fat pad General: Yes no CVA tenderness Back/Spine/Pelvis Other: Patient is able to walk and stand on heels and tip toes with minimal difficulty on the left otherwise demonstrating good motor tone. No limping. Can flex forward to 70-80 degrees and extend to 5-10 degrees before experiencing lumbar pain. Demonstrates 5/5 strength of quadriceps bilaterally as well as flexion/dorsiflexion of bilateral feet against resistance. 2+ pedal pulses bilaterally. Seated straight leg rise with dorsiflexion negative bilaterally. +2 patellar and achilles reflexes bilaterally. Facet loading test positive bilatera lly. John sign, Adam?s, Gaenslen, Pelvic compression and Stinchfield tests are positive on the left. No groin pain with I/E hip rotations. Valsalva maneuver is negative. Back: no CVA tenderness Cervical Spine: cervical ROM normal, cervical muscular tenderness, pain with cervical ROM and No Cervical spine tenderness Thoracic/Lumbar Spine: thoracic and lumbar spine normal to inspection, No Thoracic/lumbar spine scar(s), Lasegue's sign negative, straight leg raise negative bilaterally, pain with thoraco-lumbar ROM, paraspinal muscle tenderness on the left greater than right, No thoracic spinal tenderness and lumbar spinal tenderness (L4-S1) Pelvis: buttock tenderness bilaterally Sacroiliac joints: bilaterally (left>right) tender to palpation Extrem General: Yes capillary refill normal, Yes no clubbing, cyanosis or edema and Yes no calf tenderness Results Reviewed Results Reviewed: XR LUMBOSACRAL SPINE 01/01/24 CLINICAL INFORMATION: Low back pain unspecified. FINDINGS: Slight leftward curvature of the lumbar spine. Mild degenerative changes in the bilateral sacroiliac joints. Facet arthritis in the lower lumbar spine. Mild spondylosis with loss of disc space height at L5-S1. IMPRESSION: 1. Mild degenerative changes in the bilateral sacroiliac joints. 2. Facet arthritis in the lower lumbar spine. 3. Mild spondylosis with loss of disc space height at L5-S1. MR LUMBAR SPINE WITHOUT CONTRAST 05/29/24 CLINICAL INFORMATION: Low back pain COMPARISON: Lumbar radiographs 01/01/2024 FINDINGS: This examination assumes the presence of 5 lumbar type vertebral bodies. For the purposes of this examination, the L5-S1 intervertebral disc space is visualized on axial series 16 image 27. The normal lumbar lordosis is preserved. Trace retrolisthesis of L5-S1. Lumbar vertebral body heights are maintained. No expansile or destructive osseous lesion. The conus medullaris and cauda equina nerve roots are unremarkable; the conus terminates at the level of L1. L1-L2: No significant spinal canal or neural foraminal stenosis. L2-L3: No significant spinal canal or neural foraminal stenosis. L3-L4: No significant spinal canal or neural foraminal stenosis. L4-L5: No significant spinal canal or neural foraminal stenosis. L5-S1: Small central disc protrusion with annular fissure. The spinal canal is not significantly narrowed. The neural foramen are patent. Mild right facet degeneration. IMPRESSION: Small central disc protrusion with annular fissure at L5-S1. No significant spinal canal or neural foraminal stenosis in the lumbar spine. Assessment & Plan Assessment & Plan (1) Muscle spasm of back: Code(s): M62.830 - Muscle spasm of back Category: Medical (2) Sacroiliac joint pain: Code(s): M53.3 - Sacrococcygeal disorders, not elsewhere classified Category: Medical (3) Lumbosacral spondylosis: Code(s): M47.817 - Spondylosis without myelopathy or radiculopathy, lumbosacral region Category: Medical (4) Lumbar degenerative disc disease: Code(s): M51.36 - Other intervertebral disc degeneration, lumbar region Category: Medical Plan Patient's pain consistent with axial low back and left sided SI joint pain. SLR testing is normal. Lumbar spine MRI imaging has been reviewed with patient today and showed no significant spinal canal or neural foraminal stenosis. We will proceed with left SIJ injection as previously planned. Schedule Left therapeutic Sacroiliac Joint Injection with local and fluoroscopy. If no relief, will proceed with diagnostic bilateral lumbar medial branch blocks for axial low back pain. Expectations, risks and benefits were reviewed. Patient is aware she will be contacted to schedule this procedure. All questions were answered and the patient is in agreement of plan. Follow-up after injections and sooner as needed. Coding Level of Care Code Est Pt Level 4 (83788) Complex EM visit Add On G2211 Diagnoses Muscle spasm of back M62.830 Sacroiliac joint pain M53.3 Lumbosacral spondylosis M47.817 Lumbar degenerative disc disease M51.36
--- OUTSIDE RECORDS SUMMARY | 2024-11-03 11:22 | XMS_ITS | Clinical Summary ---
Author Organization [facility] Address [address] [place] [address] Care Team Providers Care Associate Consulting Engineer Name Role Phone Noemi Maher PA-C Primary Care Provider [phone] Source Comments PLEASE NOTE, if this patient is a minor, it may be UNLAWFUL to discuss sensitive information that is contained in these records (such as FAMILY PLANNING, MENTAL HEALTH or SUBSTANCE ABUSE) with the minor patient's parent or other person without the patient's specific authorization.[facility] Allergies No known active allergies Medications No known medications Active Problems Problem Noted Date Diagnosed Date Asthma 11/03/2015 Depression with anxiety 11/03/2015 Overview (11/03/2015): [facility] [place] Irregular menstrual cycle 11/03/2015 Social History Tobacco Use Types Packs/Day Years Used Date Smoking Tobacco: Never Alcohol Use Standard Drinks/Week Comments No 0 (1 standard drink = 0.6 oz pur e alcohol) Social Connections Answer Date Recorded Social Connections and Isolation 0 06/07/2019 Financial Resource Strain Answer Date R ecorded Financial Resource Strain 0 2018 Stress Answer Date Recorded Stress 0 06/07/2019 Physical Activity Answer Date Recorded Physical Activity 0 06/07/2019 Food Insecurity Answer Date Recorded Food 0 06/07/2019 Transportation Needs Answer Date Record ed Transportation 0 06/07/2019 Housing Stability Answer Date Recorded Housing 0 06/07/2019 Safety and Environment Answer Date Nik rded Safety 0 06/07/2019 Utilities Answer Date Recorded Utilities 0 06/07/2019 Employment Answer Date Recorded Employment 0 06/07/2019 Comments Unknown Sex and Gender Information Value Date Recorded Sex Assigned at Not on file Legal Sex Female 12:16 PM PST Gender Identity Not on file Sexual Orientation Not on file Last Filed Vital Signs Vital Sign Reading Time Taken Comments Blood Pressure 100/60 11/03/2015 1:18 PM EST Pulse 60 11/03/2015 1:18 PM EST Temperature 36.9 ??C (98.4 ??F) 11/03/2015 1:18 PM ES T Respiratory Rate 14 11/03/2015 1:18 PM EST Oxygen Saturation - - Inhaled Oxygen Concentration - - Weight 56.6 kg (124 lb 12.8 oz) 11/03/2015 1:18 PM EST Height 170.2 cm (5' 7 ) 11/03/2015 1:18 PM EST Body Mass Index 19.55 11/03/2015 1:18 PM EST Plan of Treatment Not on file Insurance [facility] Member Subscriber Plan / Payer (Ef fective 2015-Present) Name:Ashley Wei Relation to Subscriber:Self Name:Ashley Wei Payer ID:[id number] Group ID:Not on file Type:Medicaid Address: [facility] [id number] [place] [address] Care Teams Associate Consulting Engineer Relationship Specialty Start Date End Date Noemi Maher PA-C [address] [place] [address] PCP - General 12/09/18
--- OUTSIDE RECORDS SUMMARY | 2024-11-03 11:23 | XMS_ITS | Clinical Summary ---
Author Organization [facility] it Address [address] [place] [address] Care Team Providers Care Senior Benefits Manager Name Role Phone Unavailable Primary Care Provider Unavailabl e Social History Tobacco Use Types Packs/Day Years Used Date Smoking Tobacco: Never Assessed Sex and Gender Information Value Date Recorded Sex Assigned at Not on file Gender Identity Not on file Sexual Orientation Not on file Plan of Treatment Health Maintenance Due Date Last Done Comments DTaP,Tdap,and Td Vaccines (1 - Tdap) 2004 Hepatitis B Vaccines (1 of 3 - 19+ 3-dose series) 2004 Cervical Cancer Screening: P ap Smear 2006 COVID-19 Vaccine (2023-2 5 season) 2024 Influenza Vaccine (#1) 2024 HIB Vaccines Aged Out No longer eligi ble based on patient's age to complete this topic HPV Vaccines Aged Out No longer eligi ble based on patient's age to complete this topic Hepatitis A Vaccines Aged Out No long er eligible based on patient's age to complete this topic IPV Vaccines Aged Out No longer eligi ble based on patient's age to complete this topic MMR Vaccines Aged Out No longer eligi ble based on patient's age to complete this topic Meningococcal ACWY Vaccine Aged Out N o longer eligible based on patient's age to complete this topic Pneumococcal Vaccine: Pediat rics (0 to 5 Years) and At-Risk Patients (6 to 64 Years) Aged Out No longer eligible b ased on patient's age to complete this topic RSV Immunization Patients Un kaden 20 months Aged Out No longer eligible b ased on patient's age to complete this topic Varicella Vaccines Aged Out No longer eligible based on patient's age to complete this topic
== END 2024-11-03 10:48 | disposition home or self-care (01) ==
PROVIDERS: PCP Internal Medicine; Visit Provider Nurse Practitioner Family
DX: M62.830 Muscle spasm of back (principal); M53.3 Sacrococcygeal disorders, not elsewhere classified; M47.817 Spondylosis without myelopathy or radiculopathy, lumbosacral region; M51.369 Other intervertebral disc degeneration, lumbar region without mention of lumbar back pain or lower extremity pain
CPT/HCPCS: 99214

== ENCOUNTER → 2024-11-03 10:06 | Outpatient (BNVA) | payer BC, SELFPAY | PROVIDERS: PCP Internal Medicine; Visit Provider Nurse Practitioner Family ==

== ENCOUNTER 2025-01-12 06:35 | Outpatient (REF) | payer BC, SELFPAY ==
--- NOTE | ~2025-01-12 | FL_ITS ---
EXAMINATION: FL GUIDANCE ONLY HISTORY: M53.3 - Sacrococcygeal disorders, not elsewhere classified COMPARISON: None available. TECHNIQUE: Fluoroscopy time: 0.1 minutes. Cumulative Dose: 1.01 mGy. DAP: 0.0112 mGym2 Images: 1. FINDINGS: The image demonstrates a needle and contrast material in the region of the left sacroiliac joint. FL/FL guidance in treatment room IMPRESSION: Fluoroscopy during procedure. Please see procedure report for additional information. Electronically signed by: George Prescott MD 01/13/2025 07:24 AM EDT
== END 2025-01-12 06:36 | disposition home or self-care (01) ==
LOC: CF 06:35
PROVIDERS: Visit Provider Anesthesiology
DX: M53.3 Sacrococcygeal disorders, not elsewhere classified (principal)
CPT/HCPCS: 27096; J2003; J2795; J3301; Q9967

== ENCOUNTER 2025-01-12 14:32 | Outpatient (AMB) | payer BC, SELFPAY ==
[2025-01-12 14:44] VITALS: BP 113/65; PULSE 74; RESP 16; O2SAT 99
--- NOTE | 2025-01-12 14:44 | A.OFFVIS_ITS ---
Vital Signs 01/12/25 14:44 01/12/25 15:03 BP 113/65 123/64 Blood Pressure Location Lt brachial Lt brachial Position Sitting Sitting Respiration 16 16 Pulse 74 75 Pulse Source Pulse Oximeter Pulse Oximeter Pulse Oximetry (%) 99 100 Oxygen Delivery Method Room Air Room Air Intake Visit Reasons: LEFT THERAPEUTIC SIJ INJECTION Rehabilitation Caseworker Required: No Allergies No Known Allergies Allergy (Verified 01/12/25 14:44) Medication List - Last Reconciled 01/12/25 by Ghada Vanegas LPN No Known Home Meds [facility] Medical History Protrusion of lumbar intervertebral disc Surgical History No pertinent past surgical history Family History Maternal Grandfather Mental health disorder Mother Mental health disorder Maternal Grandmother Breast cancer Social History Housing: House Patient Tobacco Use Status: Never used Tobacco e-Cigarette/Vaping Use: Never Used Second Hand Smoke Exposure: No service: No Current occupational status: employed Current occupation: [employer] Current occupational exposures/hazards: No Cognitive needs: No Hearing needs: No Vision needs: Yes Physical Exam Vital Signs: Last Vital Signs Pulse 75 01/12/25 15:03 Resp 16 01/12/25 15:03 BP 123/64 01/12/25 15:03 Pulse Ox 100 01/12/25 15:03 Oxygen Delivery Method Room Air 01/12/25 15:03 Assessment & Plan Assessment & Plan (1) Muscle spasm of back: Code(s): M62.830 - Muscle spasm of back Category: Medical (2) Sacroiliac joint pain: Code(s): M53.3 - Sacrococcygeal disorders, not elsewhere classified Category: Medical (3) Lumbosacral spondylosis: Code(s): M47.817 - Spondylosis without myelopathy or radiculopathy, lumbosacral region Category: Medical (4) Lumbar degenerative disc disease: Code(s): M51.36 - Other intervertebral disc degeneration, lumbar region Category: Medical Plan left sacroiliac joint injection therapeutic. Informed consent was thoroughly explained to the patient before the procedure.? The patient came to the operating room.?She was positioned prone on operating table with a pillow under her abdomen.? Time-out was performed delineating correct site and side of the procedure, nature of the injection, name and date of of the patient. The lower back and upper buttocks of the patient was prepped with ChloraPrep and draped with sterile utility towels.? C-arm was brought over the operating field and picture of left sacroiliac joint was demonstrated on the screen. Tilting machine contralateral right 20 degrees from the midline the anterior portion of the silhouette of the joint was superimposed on posterior portion of the silhouette of the joint. The skin was anesthetized with mixture of ropivacaine 0.5% and lidocaine 2% one-to-one slightly medial to the silhouette of the sacroiliac joint. 22 gauge 3-1/2 inch spinal needle was inserted through the skin wheal and advanced to the sacroiliac joint. When tip of the needle entered the sacroiliac joint injection of the contrast performed delineating arthrogram. After that 4 cc of ropivacaine mixed with Kenalog 40 mg was injected into the joint. After that the procedure was repeated on the left joint in the mirroring fashion. Upon completion of the injection needle was removed and sterile bandades were applied Patient tolerated the procedure well. Orders: Orders FL guidance in treatment room Today M53.3 - Sacrococcygeal disorders, not elsewhere classified Coding Level of Care Code Procedure Only Diagnoses Muscle spasm of back M62.830 Sacroiliac joint pain M53.3 Lumbosacral spondylosis M47.817 Lumbar degenerative disc disease M51.36
[2025-01-12 15:03] VITALS: BP 123/64; PULSE 75; RESP 16; O2SAT 100
--- OUTSIDE RECORDS SUMMARY | 2025-01-12 17:24 | XMS_ITS | Clinical Summary ---
Author Organization [facility] Address [address] [place] [address] Care Team Providers Care Gauge Inspector Name Role Phone Noemi Maher PA-C Primary Care Provider [phone] Source Comments PLEASE NOTE, if this patient is a minor, it may be UNLAWFUL to discuss sensitive information that is contained in these records (such as FAMILY PLANNING, MENTAL HEALTH or SUBSTANCE ABUSE) with the minor patient's parent or other person without the patient's specific authorization.[facility] Allergies No known active allergies Medications No known medications Active Problems Problem Noted Date Diagnosed Date Asthma ([facility]) 11/03/2015 Depression with anxiety 11/03/2015 Overview (11/03/2015): [facility] [place] Irregular menstrual cycle 11/03/2015 Social History Tobacco [...] Plan of Treatment Not on file Insurance [facility] Member Subscriber Plan / Payer (Ef fective 2015-Present) Name:Ashley Wei Relation to Subscriber:Self Name:Ashley Wei Payer ID:[id number] Group ID:Not on file Type:Medicaid Address: [facility] [id number] [place] [id number] Care Teams Gauge Inspector Relationship Specialty Start Date End Date Noemi Maher PA-C [address] [place] [address] PCP - General 12/09/18
--- OUTSIDE RECORDS SUMMARY | 2025-01-12 17:24 | XMS_ITS | Clinical Summary ---
Author Organization [facility] it Address [address] [place] [address] Care Team Providers Care Electronics Supervisor Name Role Phone Unavailable Primary Care Provider Unavailabl e Social History Tobacco Use Types Packs/Day Years Used Date Smoking Tobacco: Never Assessed Comments Unknown Sex and Gender Information Value Date Recorded Sex Assigned at Not on file Legal Sex Female 5:44 AM EST Gender Identity Not on file Sexual Orientation Not on file Plan of Treatment Health Maintenance Due Date Last Done Comments DTaP,Tdap,and Td Vaccines (1 - Tdap) 2004 Hepatitis B Vaccines (1 of 3 - 19+ 3-dose series) 2004 Cervical Cancer Screening: P ap Smear 2006 COVID-19 Vaccine ( - 2023-2 5 season) 2024 Influenza Vaccine (#1) 2024 [...] patient's age to complete this topic Meningococcal B Vacine Aged Out No lo nger eligible based on patient's age to complete [...]
== END 2025-01-12 15:08 | disposition home or self-care (01) ==
LOC: HO.PMCPRC 14:32
PROVIDERS: PCP Internal Medicine; Visit Provider Anesthesiology
DX: M53.3 Sacrococcygeal disorders, not elsewhere classified (principal)
CPT/HCPCS: 27096

== ENCOUNTER 2025-01-18 11:49 | Outpatient (AMB) | payer BC, SELFPAY ==
--- NOTE | 2025-01-18 11:53 | A.OFFPC_ITS ---
Vital Signs 01/18/25 12:22 Height 5 ft 5 in Weight 154 lb BMI 25.6 BP 120/78 Blood Pressure Location Rt brachial Position Sitting Respiration 16 Pulse 76 Pulse Source Pulse Oximeter Temp 98.4 F Temp Source Oral Pulse Oximetry (%) 99 Intake Visit Reasons: Annual PE Is last menstrual period known: Yes Last menstrual period: 12/18/24 Allergies No Known Allergies Allergy (Verified 01/25/25 01:10) Medication List - Last Reconciled 01/18/25 by Dianne Moeller MD multivitamin 1 tab PO DAILY Tobacco use date assessed: 01/18/25 Dental Screening Dental Screen Date: 01/18/25 Did you have a dental visit in the last 12 months?: Yes Did you have a dental problem in the last 6 months where you did not have access to dental care?: No Was dental information given to patient?: Patient has dentist HPI Annual PE HPI Details 39-year-old lady here today for her physical exam.She has lumbar degenerative disc disease, currently being followed at [facility] pain clinic by Dr. Castellanos, who just did a left therapeutic SI joint injection 01/12/2025 with good results, per patient.. Currently sees OBGYN at [facility] for her routine Pap and pelvic exam and for her irregular menstrual cycles. [facility] Medical History Family history of thyroid disease in mother Irregular menstrual cycle Protrusion of lumbar intervertebral disc Surgical History No pertinent past surgical history Family History Maternal Grandfather Mental health disorder Mother Mental health disorder Maternal Grandmother Breast cancer Social History Housing: House Patient Tobacco Use Status: Never used Tobacco e-Cigarette/Vaping Use: Never Used Second Hand Smoke Exposure: No service: No Current occupational status: employed Current occupation: [employer] Current occupational exposures/hazards: No Cognitive needs: No Hearing needs: No Vision needs: Yes Female Reproductive History Menstrual Date of last menstrual period: 12/18/24 Questionnaire PHQ-9 Over the last 2 weeks, how often have you been bothered by any of the following problems? 1. Little interest or pleasure in doing things: not at all 2. Feeling down, depressed, or hopeless: not at all 3. Trouble falling or staying asleep, or sleeping too much: not at all 4. Feeling tired or having little energy: not at all 5. Poor appetite or overeating: not at all 6. Feeling bad about yourself - or that you are a failure or have let yourself or your family down: not at all 7. Trouble concentrating on things, such as reading the newspaper or watching television: not at all 8. Moving or speaking so slowly that other people could have noticed. Or the opposite - being so fidgety or restless that you have been moving around a lot more than usual: not at all 9. Thoughts that you would be better off or of hurting yourself in some way: not at all Total score: 0 Depression Screening Interpretation: Negative Depression Screening Done: Yes 40110 - PHQ-9 Billing: Yes Source: Developed by Drs. George Wallis, Zuleyka Echavarria, Washington Charles and colleagues, with an educational kristi from [employer]. Thrive Questionnaire Date Thrive assessed: 01/18/25 I am a: Patient What is your living situation today?: I have a steady place to live Within the past 12 months, did the food you bought not last and you didn't have the money to get more?: I choose not to answer this question Within the past 12 months, did you worry whether your food would run out before you got money to buy more?: I choose not to answer this question Do you have trouble paying for medicines?: I choose not to answer this question Do you have trouble getting transportation to medical appointments?: I choose not to answer this question Do you have trouble paying your heating and electricity bill?: I choose not to answer this question Do you have trouble taking care of your child, family member or friend?: I choose not to answer this question Do you have trouble with day-to-day activities such as bathing, preparing meals, shopping, managing finances, etc.?: No Are you currently unemployed and looking for a job?: No Are you interested in more education?: Yes Please select the resources that you would like help with: None Currently or been in a relationship where the following occur: I choose not to answer THRIVE Score: 0 AUDIT C Alcohol Use Questionnaire (AUDIT-C) 1. How often do you have a drink containing alcohol?: Never 2. How many drinks containing alcohol do you have on a typical day when you are drinking?: 1 or 2 3. How often do you have six or more drinks on one occasion?: Never Total Score: 0 JACOB-7 AMB Questionnaire JACOB-7 Date JACOB - 7 assessed: 01/18/25 Feeling nervous, anxious, or on edge: 0 = Not at all Not being able to stop or control worryin = Not at all Worrying too much about different things: 0 = Not at all Trouble relaxin = Not at all Being so restless that it is hard to sit still: 0 = Not at all Becoming easily annoyed or irritable: 0 = Not at all Feeling afraid as if something awful might happen: 0 = Not at all Total JACOB-7 score (0-4 normal; 5-9 mild; 10-14 moderate; 15-21 severe): 0 Source: Developed by Drs. George Wallis, Zuleyka Echavarria, Washington Charles and colleagues, with an educational kristi from [employer]. JACOB-7 Assessment Billing JACOB-7 Assessment Tool: JACOB-7 Assessment 77893 Review of Systems Const Denies fatigue and Denies headache(s) Eyes Details: used to go to [facility] eye clinic Denies change in vision ENT Details: Dental cleaning every 6 month Denies dizziness and Denies headache(s) Card Denies chest pain, Denies lightheadedness, Denies palpitations and Denies dyspnea Resp Denies chest congestion, Denies cough, Denies dyspnea and Denies wheezing GI Denies abdominal pain, Denies change in bowel habits and Denies heartburn Denies hematuria, Denies urinary frequency, Denies dysuria and Denies urinary urgency Musc Details: Recurrent low back pain Skin/Breast Denies breast pain, Denies breast mass, Denies lesions and Denies rash Neuro Denies dizziness and Denies headache(s) Psych Reports no additional complaints Endo Denies fatigue, Denies polydipsia, Denies polyuria and Denies palpitations Joni/Lymph Denies easy bruising Aller/Immun Denies seasonal rhinorrhea and Denies wheezing Physical exam (Primary Care) Vital Signs: Last Vital Signs Temp 98.4 F 01/18/25 12:22 Pulse 76 01/18/25 12:22 Resp 16 01/18/25 12:22 BP 120/78 01/18/25 12:22 Pulse Ox 99 01/18/25 12:22 BMI result Body Mass Index 25.6 Tobacco/Smoking Status: Tobacco use Status Tobacco use date assessed 01/18/25 01/18/25 12:24 Patient Tobacco Use Status Never used Tobacco 01/18/25 11:53 e-Cigarette/Vaping Use Never Used 01/18/25 11:53 PHQ-9: PHQ-9 Score PHQ-9: Total score 0 01/18/25 12:54 Depression Screening Interpretation: Negative Thrive Assessment: Date of Thrive Assessment Date Thrive assessed 01/18/25 01/18/25 12:24 Currently or been in a relationship where the following occur: I choose not to answer Advance Care Planning discussion: Completed/Scanned Date of discussion: 01/18/25 Who was present: patient Forms completed: Health Care Proxy Time spent: 16-45 minutes Actual minutes spent: 3 Const General: no acute distress and alert Orientation/consciousness: patient oriented x3 HENMT Head: Yes normocephalic Ears: external ears normal, TM's normal bilaterally and EAC's normal General nose exam: Normal external nose present Face and sinus: Yes face symmetric Mouth: Normal oral and palatal mucosa present, oropharynx normal and moist mucous membranes Eyes General: appearance normal, both eyes and all related structures Neck Neck: Yes full ROM, Yes no lymphadenopathy and Yes supple Chest Chest palpation & inspection: normal inspection of the chest Breast/axilla palpation: normal palpation of the breasts Resp Effort & Inspection: normal respiratory effort and able to speak in complete sentences Auscultation: clear to auscultation bilaterally Cardio Rate: regular rate Rhythm: regular rhythm Heart sounds: S1 normal heart sound present and S2 normal heart sound present GI Palpation (GI): Soft to palpation, nontender and no masses Auscultation: normal bowel sounds General: Yes deferred (Goes to her own OBGYN in [facility]) Back/Spine/Pelvis Back: back tenderness (Lumbar spine area) Skin General skin exam: no rashes or lesions noted Neuro General: patient oriented x3, gait normal, tone normal, moves all extremities, Normal light touch and pain sensation and no focal motor deficits Cranial nerves: Yes CN's II-XII intact bilaterally Cognition (Neuro): normal cognition Gait exam (Neuro): Normal gait present Extrem General: Yes full ROM, Yes no joint enlargement, Yes no clubbing, cyanosis or edema and Yes no calf tenderness Psych Appearance: grossly normal and well kempt Mental Status: mental status grossly normal Speech and movement: Normal speech and movement present Affect: normal affect Thought process: Normal thought process present Coding Level of Care Code Est Pt Prev Care 18-39y(95138) Diagnoses Encounter for routine adult physical exam with abnormal findings Z00.01 Vitamin D deficiency E55.9 Irregular menstrual cycle N92.6 Lumbar degenerative disc disease M51.36 Additional Codes Vital Signs *Quality* - Advance Care Planning discussion: Completed/Scanned ([id number]) Vital Signs *Quality* - Time spent: 16-45 minutes ([id number]) JACOB-7 Assessment Billing - JACOB-7 Assessment Tool: JACOB-7 Assessment [id number] ([id number]) PHQ-9 - 48691 - PHQ-9 Billing: Yes ([id number]) Assessment & Plan Assessment & Plan (1) Encounter for routine adult physical exam with abnormal findings: Comment: Will order fasting labs. Will refer patient OBGYN. Code(s): Z00.01 - Encounter for general adult medical examination with abnormal findings Category: Medical Plan: Will check appropriate labs. Recommended dental visit every 6 months and regular eye exams, at least every 2 years. Take adequate calcium in diet and vitamin-D 3 at 2000 IU per cap once a day, in addition to weight-bearing exercises to help maintain good muscle tone and weight control. Instructed to do self-breast exam, and recommended to get yearly mammogram, starting at age 40. She goes to [facility] for her routine Pap and pelvic exam, last Pap smear was done in 2023 with benign findings. Reminded to get yearly flu vaccine, (2) Vitamin D deficiency: Code(s): E55.9 - Vitamin D deficiency, unspecified Category: Medical Plan: Ordered vitamin-D level (3) Irregular menstrual cycle: Code(s): N92.6 - Irregular menstruation, unspecified Category: Medical Plan: Currently followed at [facility], will check thyroid levels (4) Lumbar degenerative disc disease: Code(s): M51.36 - Other intervertebral disc degeneration, lumbar region Category: Medical Plan: Currently sees Dr. Castellanos for pain management Orders: Orders Vitamin D 25-OH Total 01/22/25 E55.9 - Vitamin D deficiency, unspecified, N92.6 - Irregular menstruation, unspecified, Z00.01 - Encounter for general adult medical examination with abnormal findings, Z13.1 - Encounter for screening for diabetes mellitus, Z13.220 - Encounter for screening for lipoid disorders, Z83.49 - Family history of other endocrine, nutritional and metabolic diseases Complete Blood Count Auto Diff 01/22/25 E55.9 - Vitamin D deficiency, unspecified, N92.6 - Irregular menstruation, unspecified, Z00.01 - Encounter for general adult medical examination with abnormal findings, Z13.1 - Encounter for screening for diabetes mellitus, Z13.220 - Encounter for screening for lipoid disorders, Z83.49 - Family history of other endocrine, nutritional and metabolic diseases Comprehensive [place]. Panel Fast 01/22/25 E55.9 - Vitamin D deficiency, unspecified, N92.6 - Irregular menstruation, unspecified, Z00.01 - Encounter for general adult medical examination with abnormal findings, Z13.1 - Encounter for screening for diabetes mellitus, Z13.220 - Encounter for screening for lipoid disorders, Z83.49 - Family history of other endocrine, nutritional and metabolic diseases Vitamin B12 and Folate 01/22/25 E55.9 - Vitamin D deficiency, unspecified, N92.6 - Irregular menstruation, unspecified, Z00.01 - Encounter for general adult medical examination with abnormal findings, Z13.1 - Encounter for screening for diabetes mellitus, Z13.220 - Encounter for screening for lipoid disorders, Z83.49 - Family history of other endocrine, nutritional and metabolic diseases Thyroid Stimulating Hormone 01/22/25 E55.9 - Vitamin D deficiency, unspecified, N92.6 - Irregular menstruation, unspecified, Z00.01 - Encounter for general adult medical examination with abnormal findings, Z13.1 - Encounter for screening for diabetes mellitus, Z13.220 - Encounter for screening for lipoid disorders, Z83.49 - Family history of other endocrine, nutritional and metabolic diseases Free T4 (Free Thyroxine) 01/22/25 E55.9 - Vitamin D deficiency, unspecified, N92.6 - Irregular menstruation, unspecified, Z00.01 - Encounter for general adult medical examination with abnormal findings, Z13.1 - Encounter for screening for diabetes mellitus, Z13.220 - Encounter for screening for lipoid disorders, Z83.49 - Family history of other endocrine, nutritional and metabolic diseases Thyroid Peroxidase Antibodies 01/22/25 E55.9 - Vitamin D deficiency, unspecified, N92.6 - Irregular menstruation, unspecified, Z00.01 - Encounter for general adult medical examination with abnormal findings, Z13.1 - Encounter for screening for diabetes mellitus, Z13.220 - Encounter for screening for lipoid disorders, Z83.49 - Family history of other endocrine, nutritional and metabolic diseases Lipid Panel 01/22/25 E55.9 - Vitamin D deficiency, unspecified, N92.6 - Irregular menstruation, unspecified, Z00.01 - Encounter for general adult medical examination with abnormal findings, Z13.1 - Encounter for screening for diabetes mellitus, Z13.220 - Encounter for screening for lipoid disorders, Z83.49 - Family history of other endocrine, nutritional and metabolic diseases
[2025-01-18 12:22] VITALS: BP 120/78; PULSE 76; RESP 16; TEMP 36.9; O2SAT 99; BMI 25.6
--- OUTSIDE RECORDS SUMMARY | 2025-01-18 14:18 | XMS_ITS | Clinical Summary ---
Author Organization [facility] it Address [address] [place] [address] Care Team Providers Care Vision Teacher Name Role Phone Unavailable Primary Care Provider [...]
--- OUTSIDE RECORDS SUMMARY | 2025-01-18 14:18 | XMS_ITS | Clinical Summary ---
Author Organization [facility] Address [address] [place] [address] Care Team Providers Care Fish Seiner Name Role Phone Noemi Maher PA-C Primary Care Provider [phone] Source Comments PLEASE NOTE, if this patient is a minor, it may be UNLAWFUL to discuss sensitive information that is contained in these records (such as FAMILY PLANNING, MENTAL HEALTH or SUBSTANCE ABUSE) with the minor patient's parent or other person without the patient's specific authorization.[facility] Allergies No known active allergies Medications No known medications Active Problems Problem Noted Date Diagnosed Date Asthma ([facility]) 11/03/2015 Depression with anxiety 11/03/2015 Overview (11/03/2015): [facility] [place] Irregular menstrual cycle 11/03/2015 Social History Tobacco [...] Plan of Treatment Not on file Insurance [facility] Member Subscriber Plan / Payer (Ef fective 2015-Present) Name:Ashley Wei Relation to Subscriber:Self Name:Ashley Wei Payer ID:[id number] Group ID:Not on file Type:Medicaid Address: [facility] [id number] [place] [id number] Care Teams Fish Seiner Relationship Specialty Start Date End Date Noemi Maher PA-C [address] [place] [address] PCP - General 12/09/18
== END 2025-01-18 12:53 | disposition home or self-care (01) ==
LOC: HO.HMCC 11:50
PROVIDERS: PCP Internal Medicine; Visit Provider Internal Medicine
DX: Z00.01 Encounter for general adult medical examination with abnormal findings (principal); E55.9 Vitamin D deficiency, unspecified; N92.6 Irregular menstruation, unspecified; M51.369 Other intervertebral disc degeneration, lumbar region without mention of lumbar back pain or lower extremity pain; Z00.00 Encounter for general adult medical examination without abnormal findings

== ENCOUNTER → 2025-01-18 11:49 | Outpatient (BNVA) | payer BC, SELFPAY | PROVIDERS: PCP Internal Medicine; Visit Provider Internal Medicine | DX: Z00.01 Encounter for general adult medical examination with abnormal findings (principal); E55.9 Vitamin D deficiency, unspecified; N92.6 Irregular menstruation, unspecified; M51.369 Other intervertebral disc degeneration, lumbar region without mention of lumbar back pain or lower extremity pain | CPT/HCPCS: 96127 ==

== ENCOUNTER 2025-01-22 06:08 | Outpatient (REF) | payer BC, SELFPAY ==
--- OUTSIDE RECORDS SUMMARY | 2025-01-22 06:10 | XMS_ITS | Clinical Summary ---
Author Organization [facility] it Address [address] [place] [address] Care Team Providers Care Optometrist Name Role Phone Unavailable Primary Care Provider [...] - 2023-2 5 season) 2024 Influenza Vaccine (Season Ended) 2025 HIB Vaccines Aged Out No longer eligi [...] age to complete this topic Meningococcal B Vaccine Aged Out No l onger eligible based on patient's age to complete [...]
--- OUTSIDE RECORDS SUMMARY | 2025-01-22 06:10 | XMS_ITS | Clinical Summary ---
Author Organization [facility] Address [address] [place] [address] Care Team Providers Care Felt Hooker Name Role Phone Noemi Maher PA-C Primary Care Provider [phone] Source Comments PLEASE NOTE, if this patient is a minor, it may be UNLAWFUL to discuss sensitive information that is contained in these records (such as FAMILY PLANNING, MENTAL HEALTH or SUBSTANCE ABUSE) with the minor patient's parent or other person without the patient's specific authorization.[facility] Allergies No known active allergies Medications No known medications Active Problems Problem Noted Date Diagnosed Date Asthma ([facility]) 11/03/2015 Depression with anxiety 11/03/2015 Overview (11/03/2015): [facility] [place] Irregular menstrual cycle 11/03/2015 Social History Tobacco [...] Plan of Treatment Not on file Insurance [facility] Member Subscriber Plan / Payer (Ef fective 2015-Present) Name:Ashley Wei Relation to Subscriber:Self Name:Ashley Wei Payer ID:[id number] Group ID:Not on file Type:Medicaid Address: [facility] [id number] [place] [id number] Care Teams Felt Hooker Relationship Specialty Start Date End Date Noemi Maher PA-C [address] [place] [address] PCP - General 12/09/18
[2025-01-22 10:29] LABS: MANUAL DIFF FLAG NO
[2025-01-22 10:47] LABS: Basophils Absolute Auto 0.1 X10*3/uL (0.0-0.2); Basophils Percent Auto 1.1 % (0-2); Eosinophils Absolute Auto 0.1 X10*3/uL (0.0-0.4); Eosinophils Percent Auto 1.2 % (0-4); Hematocrit 39.7 % (37.0-47.0); Hemoglobin 13.1 g/dl (12.0-16.0); Imm Gran Abs Auto 0.01 X10*3/uL (0.00-0.03); Imm Gran Pct Auto 0.2 % (0.0-0.4); Lymphocytes Absolute Auto 1.8 X10*3/uL (1.2-4.9); Lymphocytes Percent Auto 31.2 % (20-40); Mean Corpuscular Hemoglobin 30.9 pg (27.0-33.0); Mean Corpuscular Volume 93.6 fL (80.0-98.0); Monocytes Absolute Auto 0.4 X10*3/uL (0.1-1.2); Monocytes Percent Auto 7.7 % (2-11); Neutrophils Absolute Auto 3.3 x10*3/uL (2.0-8.3); Neutrophils Percent Auto 58.6 % (45-73); Platelet Count 290 X10*3/uL (160-400); Red Blood Count 4.24 X10*6/uL (4.20-5.50); Red Cell Distribution Width 12.5 % (11.0-16.0); White Blood Count 5.7 X10*3/uL (4.8-10.8)
[2025-01-22 11:09] LABS: Alanine Aminotransferase 11 U/L (0-31); Albumin Level 4.1 g/dL (3.5-5.0); Alkaline Phosphatase 46 U/L (39-117); Anion Gap 10 (12-20); Aspartate Amino Transferase 19 U/L (5-31); Bilirubin Total 1.7 mg/dL (0.0-1.0); Blood Urea Nitrogen 15 mg/dL (9-16); Calcium 8.9 mg/dL (8.4-10.2); Carbon Dioxide 27 mmol/L (22-29); Chloride 108 mmol/L (96-108); Cholesterol 163 mg/dL (<200); Estimated Glomerular Filt Rate > 60; Glucose Fasting 88 mg/dL (60-99); HDL Cholesterol 54 mg/dL (>40); LDL Cholesterol Calculated 93 mg/dL (<100); Potassium 4.1 mmol/L (3.3-5.1); Sodium 141 mmol/L (135-145); Total Protein 6.8 g/dL (6.5-8.0); Triglycerides 83 mg/dL (<150)
[2025-01-22 11:28] LABS: Free T4 (Free Thyroxine) 1.02 ng/dL (0.71-1.85); Thyroid Stimulating Hormone 3.11 uIU/mL (0.32-4.0); Vitamin D 25-OH Total 40.3 ng/mL (>30)
[2025-01-22 11:33] LABS: Folate 13.3 ng/mL (> or = 4.0); Vitamin B12 352 pg/mL (200-900)
[2025-01-25 18:13] LABS: Thyroid Peroxidase Antibodies 1 IU/mL (<9)
== END 2025-01-22 06:09 | disposition home or self-care (01) ==
LOC: HO.HMGCLDS 06:08
PROVIDERS: PCP Internal Medicine; Visit Provider Internal Medicine
DX: Z00.01 Encounter for general adult medical examination with abnormal findings (principal); E55.9 Vitamin D deficiency, unspecified; N92.6 Irregular menstruation, unspecified; Z83.49 Family history of other endocrine, nutritional and metabolic diseases; Z13.220 Encounter for screening for lipoid disorders; Z13.1 Encounter for screening for diabetes mellitus
CPT/HCPCS: 36415; 80053; 80061; 82306; 82607; 82746; 84439; 84443; 85025; 86376

== ENCOUNTER 2025-02-05 13:30 | Outpatient (AMB) | payer BC, SELFPAY ==
--- NOTE | 2025-02-05 13:33 | A.OFFVIS_ITS ---
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 This pain has been managed with a SI joint injection on 01/12/[address] Castellanos and initially worsened within the first week post- procedure before gradually improving. Currently, she experiences midline lower back pain without significant radiating symptoms, exacerbated by activities such as lifting and bending down. The pain intensifies during her menstrual period and is described as a 5/10 at its current level for low back pain and 2-3/10 for left SI joint pain. She reports at least 50-60 % improvement from baseline since injection. Physical therapy has been completed with partial improvement last year. No groin pain is present when the patient is at rest, only upon sitting. The patient is interested in SI joint belt for additional support. Past Procedures: 01/12/25: Left Therapeutic SIJ [id number]% pain relief PRIOR: Patient presents today for follow up for continued left sided low back pain. She was initially seen in our office last summer with plans for left therapeutic SIJ injection. Patient reports she wanted to complete lumbar spine MRI prior to injection which she completed in May 2024 which showed small central disc protrusion with annular fissure at L5-S1. No significant spinal canal or neural foraminal stenosis in the lumbar spine. Her pain is consistent with left sacroiliac joint pain. She completed formal course of PT and continues with home exercise program with continued symptoms. Denies any recent cough, cold, infection, fever or other significant changes in medical history since last office visit. PRIOR 03/27/24: Patient is a pleasant 38 years old female with history of lumbar degenerative disc disease at L5-S1, lumbar spondylosis and sacroiliac joint degeneration presents today for initial evaluation of low back pain. Denies any recent trauma, injury or falls. 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 Back pain is axial and also radiates into both buttocks, sacral areas and lateral hips but not below the knee level. She reports intermittent numbness and tingling into her left lateral lower extremity. 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 Pain is rated at 8-10/10. Patient has tried meloxicam and cyclobenzaprine with partial relief. She is currently undergoing physical therapy at [facility] with mild improvement. Pain affects her daily activities, functioning, house chores and work, sleep and social interactions. Denies any fever, chills, abdominal or groin pain, weakness, foot drop, bladder or bowel dysfunction or saddle anesthesia. Oswestry Low Back Pain Score=18 (moderate disability) Location: Lower back radiates down to bilateral leg, left leg is worse Duration: Chronic pain for over 3 years Characteristics of symptom or complaint: Stabbing, shooting, numbness, aching, spasming, throbbing, tingling Aggravating or associated factors: Sitting, walking, cold weather, bending, heavy lifting, pulling, twisting Relieving factors: Standing, rest, cyclobenzaprine, NSAIDs Treatment: Back injections- [place] , PT [facility] Medical History (Updated 02/05/25 @ 14:25 by JOLANTA Soto) Sacroiliac joint pain Lumbosacral spondylosis Family history of thyroid disease in mother Irregular menstrual cycle Protrusion of lumbar intervertebral disc Surgical History No pertinent past surgical history Family History Maternal Grandfather Mental health disorder Mother Mental health disorder Maternal Grandmother Breast cancer Social History Housing: House Patient Tobacco Use Status: Never used Tobacco e-Cigarette/Vaping Use: Never Used Second Hand Smoke Exposure: No service: No Current occupational status: employed Current occupation: [employer] Current occupational exposures/hazards: No Cognitive needs: No Hearing needs: No Vision needs: Yes Review of Systems Const All systems reviewed & are unremarkable except as noted in HPI and below Physical Exam Vital Signs: Last Vital Signs Pulse 70 02/05/25 13:36 BP 119/66 02/05/25 13:36 Pulse Ox 97 02/05/25 13:36 Oxygen Delivery Method Room Air 02/05/25 13:36 BMI result Body Mass Index 26.6 General: Appears afebrile. Alert and oriented. Mood and affect appropriate. Follows and participates in conversation appropriately. Respiratory effort is unlabored. No cough. Able to transition from sit to stand unassisted. Ambulates with bilaterally normal heel strike and toe off. Back/Spine/Pelvis Cervical Spine: cervical ROM normal and No Cervical spine tenderness Thoracic/Lumbar Spine: thoracic and lumbar spine normal to inspection, No Thoracic/lumbar spine scar(s), Lasegue's sign negative, straight leg raise negative bilaterally, pain with thoraco-lumbar ROM, paraspinal muscle tenderness on the left greater than right, No thoracic spinal tenderness and lumbar spinal tenderness (L4-S1) Pelvis: no buttock tenderness Sacroiliac joints: bilaterally (left>right) tender to palpation (mild) Results Reviewed Results Reviewed: XR LUMBOSACRAL SPINE 01/01/24 CLINICAL INFORMATION: Low back pain unspecified. FINDINGS: Slight leftward curvature of the lumbar spine. Mild degenerative changes in the bilateral sacroiliac joints. Facet arthritis in the lower lumbar spine. Mild spondylosis with loss of disc space height at L5-S1. IMPRESSION: 1. Mild degenerative changes in the bilateral sacroiliac joints. 2. Facet arthritis in the lower lumbar spine. 3. Mild spondylosis with loss of disc space height at L5-S1. MR LUMBAR SPINE WITHOUT CONTRAST 05/29/24 CLINICAL INFORMATION: Low back pain COMPARISON: Lumbar radiographs 01/01/2024 FINDINGS: This examination assumes the presence of 5 lumbar type vertebral bodies. For the purposes of this examination, the L5-S1 intervertebral disc space is visualized on axial series 16 image 27. The normal lumbar lordosis is preserved. Trace retrolisthesis of L5-S1. Lumbar vertebral body heights are maintained. No expansile or destructive osseous lesion. The conus medullaris and cauda equina nerve roots are unremarkable; the conus terminates at the level of L1. L1-L2: No significant spinal canal or neural foraminal stenosis. L2-L3: No significant spinal canal or neural foraminal stenosis. L3-L4: No significant spinal canal or neural foraminal stenosis. L4-L5: No significant spinal canal or neural foraminal stenosis. L5-S1: Small central disc protrusion with annular fissure. The spinal canal is not significantly narrowed. The neural foramen are patent. Mild right facet degeneration. IMPRESSION: Small central disc protrusion with annular fissure at L5-S1. No significant spinal canal or neural foraminal stenosis in the lumbar spine. Assessment & Plan Assessment & Plan (1) Lumbar degenerative disc disease: Code(s): M51.36 - Other intervertebral disc degeneration, lumbar region Category: Medical (2) Sacroiliac joint pain: Code(s): M53.3 - Sacrococcygeal disorders, not elsewhere classified Category: Medical (3) Lumbosacral spondylosis: Code(s): M47.817 - Spondylosis without myelopathy or radiculopathy, lumbosacral region Category: Medical Plan The strategy for managing the patient's sacroiliac joint dysfunction involves observation post-injection, promoting functional support through an SI joint belt fitting. We'll further consider a repeat injection if necessary in the future, contingent on return of pain to baseline levels. Conservative adjustments in physical activity and ergonomic posture will be emphasized to maintain functional capacity. Script sent to [facility] for SI joint belt and fitting to patient's size. All questions and concerns have been answered and patient agreed with the plan. Follow up as needed. Patient was informed and verbally consented to the use of an ambient scribe for clinic note documentation during this visit. Medications: New sacroiliac belt As directed 1 ea 0RF lumbosacral support M47.817 - Spondylosis without myelopathy or radiculopathy, lumbosacral region, M53.3 - Sacrococcygeal disorders, not elsewhere classified Patient Instructions: I discussed with the patient the management of her sacroiliac joint dysfunction, highlighting the benefits and limitations of current treatment, specifically the SI joint injection and the anticipated outcomes. I've explained the potential need for future injections based on sustained pain relief. The patient was advised on acquiring an SI joint belt for additional support and the fitting process and insurance approval needed was detailed. Conversations included lifestyle modifications to minimize pain triggers, especially during periods of increased activity or menstruation. We agreed that if significant pain recurs in three months, the need for further intervention should be reconsidered. - Obtain the SI joint belt for additional support. - Use the belt during the day and remove at night. - Modify activities to minimize lifting and prolonged sitting. - Report any significant increase in pain. - Follow through with the fitting arrangement and insurance approval for the SI joint belt. Coding Level of Care Code Est Pt Level 4 (37884) Complex EM visit Add On G2211 Diagnoses Lumbar degenerative disc disease M51.36 Sacroiliac joint pain M53.3 Lumbosacral spondylosis M47.817
[2025-02-05 13:36] VITALS: BP 119/66; PULSE 70; O2SAT 97; BMI 26.6
--- OUTSIDE RECORDS SUMMARY | 2025-02-05 14:12 | XMS_ITS | Clinical Summary ---
Author Organization 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
--- OUTSIDE RECORDS SUMMARY | 2025-02-05 14:12 | XMS_ITS | Clinical Summary ---
Author Organization [facility] Address [address] [place] [address] Care Team Providers Care Park Worker Name Role Phone Noemi Maher PA-C Primary Care Provider [phone] Source Comments PLEASE NOTE, if this patient is a minor, it may be UNLAWFUL to discuss sensitive information that is contained in these records (such as FAMILY PLANNING, MENTAL HEALTH or SUBSTANCE ABUSE) with the minor patient's parent or other person without the patient's specific authorization.[facility] Allergies No known active allergies Medications No known medications Active Problems Problem Noted Date Diagnosed Date Asthma ([facility]) 11/03/2015 Depression with anxiety 11/03/2015 Overview (11/03/2015): [facility] [place] Irregular menstrual cycle 11/03/2015 Social History Tobacco [...] ID:[id number] Group ID:Not on file Type:Medicaid Address: [facility] [id number] [id number] Care Teams Park Worker Relationship Specialty Start Date End Date Noemi Maher PA-C [address] [place] [address] PCP - General 12/09/18
== END 2025-02-05 14:03 | disposition home or self-care (01) ==
LOC: HO.PMC 13:30
PROVIDERS: PCP Internal Medicine; Visit Provider Nurse Practitioner Family
DX: M51.369 Other intervertebral disc degeneration, lumbar region without mention of lumbar back pain or lower extremity pain (principal); M53.3 Sacrococcygeal disorders, not elsewhere classified; M47.817 Spondylosis without myelopathy or radiculopathy, lumbosacral region
CPT/HCPCS: 99214

== ENCOUNTER → 2025-02-05 13:30 | Outpatient (BNVA) | payer BC, SELFPAY | PROVIDERS: PCP Internal Medicine; Visit Provider Nurse Practitioner Family ==